=== PATIENT | female | born 1980 | race Caucasian/White ===

== ENCOUNTER 2017-04-15 07:02 | Emergency (ER) | payer OTHER ==
[~2017-04-15] VITALS: Ht 160 cm; Wt 62.0 kg
[2017-04-15] MEDS ORDERED: ALBUTEROL (0.083%) 2.5MG/3ML NEB HHN STA (07:41)
[2017-04-15] MEDS ORDERED: PREDNISONE 20MG TABLET PO STA (07:41)
[2017-04-15] MEDS ORDERED: IPRATROPIUM BROMIDE (0.02%) 0.5MG/2.5ML NEB HHN STA (07:41)
[2017-04-15] MEDS ORDERED: ALBUTEROL (0.5%) 2.5MG/0.5ML NEB HHN ONE (07:58)
[2017-04-15 10:01] VITALS: BP 129/77
[2017-04-15] MEDS ORDERED: ALBUTEROL 6.7GM HFA INHALER ORI ONE (10:30)
== END 2017-04-15 11:26 | disposition home or self-care (01) ==
LOC: ER 07:35
DX: J45.901 Unspecified asthma with (acute) exacerbation (principal); L03.811 Cellulitis of head [any part, except face]; R03.0 Elevated blood-pressure reading, without diagnosis of hypertension; F11.10 Opioid abuse, uncomplicated
CPT/HCPCS: 71010; 94640; 99283; J7512; J7611

== ENCOUNTER 2017-05-29 20:31 | Emergency (ER) | payer MEDICAID, OTHER ==
[~2017-05-29] VITALS: Ht 160 cm; Wt 61.0 kg
[2017-05-29] MEDS ORDERED: IPRATROPIUM BROMIDE (0.02%) 0.5MG/2.5ML NEB HHN STA (23:03)
[2017-05-29] MEDS ORDERED: ALBUTEROL (0.083%) 2.5MG/3ML NEB HHN STA (23:03)
[2017-05-30 00:05] VITALS: BP 145/61
== END 2017-05-30 00:50 | disposition home or self-care (01) ==
LOC: ER 21:34
DX: J45.901 Unspecified asthma with (acute) exacerbation (principal)
CPT/HCPCS: 94640; 99283; J7611; Z7610